=== PATIENT | male | born 1960 | race Caucasian/White ===

== ENCOUNTER 2025-08-12 20:35 | Emergency (ER) | payer MEDICARE, OTHER, SELFPAY ==
--- OUTSIDE RECORDS SUMMARY | 2022-11-29 05:00 | XMS_ITS | Continuity of Care Document ---
Author Organization [facility] Address [address] [place] [address] Phone Care Team Providers Care Business Objects Name Role Phone Zane Holder MD Unavailable Unavailable Procedures Procedure Date BLE ARTERIAL DUPLEX Advance Directives Directive Yes / No Effective Date File Name No Information Encounters Encounter Description Practice Location Reason(s) For Visit Diagnoses Date Provider [facility], [address], [place], [place], [id number], [place] tel:[phone] [facility] [place] No Information 2022 Glory Degroot. [address] [address], [address], [place], [place], [id number], [place]. tel:[phone] [facility], [address], [place], [place], [id number], [place] tel:[phone] [facility] [place] No Information 2022 Glory Degroot. [address] Ger[address]ona, [address], [place], [place], [id number], [place]. tel:[phone] [facility], [address], [place], [place], [id number], [place] tel:[phone] [facility] [place] No Information 2022 Glory Degroot. [address] Gerri Barahona, [address], [place], [place], [id number], [place]. tel:[phone] [facility], [address], [place], [place], [id number], [place] tel:[phone] [facility] [place] No Information 2022 Glory Degroot. [address] Ger[address]ahona, [facility] [address], [place], [place], [id number], [place]. tel:[phone] Family History Family Member Type Diagnosis Age At Onset No Information Payers Payer name Insurance type Covered alliance party ID Authorolivera clement(s) [facility] [id number] Social History Type Description Quantity Date Captured Comments Sex Male Smoking Status No Information Chief Complaint And Reason For Visit No Information History Of Present Illness Encounter Date Complaint History Of Prese nt Illness No Information Instructions Date Instruction Additional Infor mation No Information Assessments Type Assessment Date No Information
[2025-08-12 20:38] VITALS: BP 163/92; PULSE 98; RESP 22; TEMP 37.3; O2SAT 95; BMI 42.0
--- NOTE | 2025-08-12 20:44 | ECG_ITS ---
[facility]: 2025-08-12 Pat Name: Wai Marshall Department: Room: Gender: Male Special Technical Operations Officer: : 1960 Requested By: Milad Phillip Order Number: [id number] Magallon MD: Charlie Hernandez M.D. Measurements Intervals [place] Rate: 99 P: 55 CA: 211 QRS: 243 QRSD: 150 T: 40 QT: 387 QTc: 498 Interpretive Statements SINUS RHYTHM WITH FIRST DEGREE AV BLOCK RIGHT AXIS DEVIATION [QRS AXIS > 100] RIGHT BUNDLE BRANCH BLOCK [120+ ms QRS DURATION, UPRIGHT V1, 40+ ms S IN I/aVL/V4/V5/V6] No previous ECG available for comparison Electronically Signed On 08-13-2025 13:03:50 CDT by Charlie Hernandez M.D. [id number]
[2025-08-12 20:45] VITALS: BP 163/92; PULSE 98; RESP 22; TEMP 37.3; O2SAT 95
--- OUTSIDE RECORDS SUMMARY | 2025-08-12 20:45 | XMS_ITS | Referral Summary ---
Author Organization [facility] Address [address] [place] [address] Care Team Providers Care Architectural Design Professor Name Role Phone Unavailable Primary Care Provider Unavailabl e Social History Tobacco Use Types Packs/Day Years Used Date Smoking Tobacco: Never Assessed Sex and Gender Information Value Date Recorded Sex Assigned at Not on file Legal Sex Male 3:24 PM MDT Gender Identity Not on file Sexual Orientation Not on file Plan of Treatment Not on file
--- OUTSIDE RECORDS SUMMARY | 2025-08-12 20:45 | XMS_ITS | Clinical Summary ---
Author Organization [facility] Address [address] [place] [address] Care Team Providers Care Line Rider Name Role Phone Unavailable Primary Care Provider [...]
--- OUTSIDE RECORDS SUMMARY | 2025-08-12 20:45 | XMS_ITS | Clinical Summary ---
Author Organization [facility] Address [address] [place] [id number] Care Team Providers Care Curator Medical Museum Name Role Phone Karen Dia MD Primary Care Provide r Allergies Active Allergy Reactions Criticality Noted Date Comments Penicillins UNKNOWN (SEE COMMENTS) 03/24/2005 Medications aspirin 81 mg chewable tablet 2 tablets. Act george lisinopriL (PRINIVIL,ZESTRI L) 10 mg tablet 12/31/2023 Act george metoprolol succinate (TOPROL-XL) 25 mg 24 hr tablet 01/05/2024 Act george pravastatin (PRAVACHOL) 20 mg tablet Take 1 tablet by mouth daily. Active MULTIVITAMIN PO Acti ve docosahexaenoic acid/epa (FISH OIL PO) Active Social History Tobacco Use Types Packs/Day Years Used Date Smoking Tobacco: Every Day Cigarettes Smokeless Tobacco: Never Tobacco Cessation:Ready to Q uit: Not Asked; Counseling Given: Not Answered Sex and Gender Information Value Date Recorded Sex Assigned at Not on file Legal Sex Male 12:36 PM MDT Gender Identity Not on file Sexual Orientation Not on file Last Filed Vital Signs Vital Sign Reading Time Taken Comments Blood Pressure - - Pulse - - Temperature - - Respiratory Rate - - Oxygen Saturation - - Inhaled Oxygen Concentration - - Weight 134.3 kg (296 lb) 01/05/2025 8:50 AM [facility] Height 175.3 cm (5' 9 ) 01/05/2025 8:50 AM [facility] Body Mass Index 43.71 01/05/2025 8:50 AM [facility] Plan of Treatment Health Maintenance Due Date Last Done Comments Abdominal Aortic Aneurysm Screening 1960 CT Colonography 1960 Colonoscopy 1960 Colorectal Cancer Screening 1960 Flexible Sigmoidoscopy 1960 Stool DNA Test (Cologuard) 1960 Stool Occult Blood Test (FIT) 1960 Hepatitis C Antibody Screening 1976 [employer] ([employer]) 1976 RSV Vaccine Adult (1 - Risk 60-74 years 1-dose series) 2018 Influenza Vaccine (#1) 2025 , 08/26/2023, 09/13/2022, Additional history exists Lipids 04/21/2029 04/21/2024, 04/07/2023 Tdap/Td Vaccine (2 - Td or Tdap) 04/07/2033 04/07/20 23 Shingles Vaccine Completed 10/25/2019, 07/14/2019 Pneumonia Vaccine 50+ Completed 08/26/2023, 023 Insurance MEDICARE A AND B [employer] FOR LIFE - MEDICARE IS PRIMARY MEDICARE A AND B Care Teams Curator Medical Museum Relationship Specialty Start Date End Date Karen Dia MD [address] [place] [address] PCP - General Internal Medicine 04/25/23
[2025-08-12] MEDS: glucagon 1 mg/mL KIT 1 mL IVP (21:00)
--- NOTE | 2025-08-12 21:07 | ED_ITS ---
HPI - General Adult 2 General: Chief complaint: Airway/Esophagus Foreign Body Stated complaint: SOB Time Seen by Provider: 08/12/25 20:38 History of Present Illness: Patient is a 65-year-old male that was eating steak at [employer], choked on a steak, and came to the ED right after choking. He continues to be spitting while in the ER. He arrived by EMS. He feels a sensation of something in his neck. He has never had this before. He does not have a known stricture. Associated symptoms: Reports nausea and vomiting; Deny chest pain, dyspnea, headache(s), rash or palpitations Related Data Allergies Allergy/AdvReac Type Severity Reaction Status Date / Time amoxicillin Allergy Unknown Verified 08/12/25 20:56 Review of Systems 2 General: Reports: 10 or more systems reviewed and unremarkable except in HPI and below Const: Denies: fever(s) or chills Eyes: Denies: change in vision or blurry vision ENMT: Reports: odynophagia and mouth pain; Denies: throat pain Card: Denies: chest pain or palpitations Resp: Denies: dyspnea or productive cough GI: Reports: abdominal pain, nausea and vomiting : Denies: flank pain or difficulty urinating Musc: Denies: neck pain, back pain or extremity pain Skin/Breast: Denies: rash or pruritus Neuro: Denies: headache(s) or numbness in extremities Psych: Denies: anxiety or depression Endo: Denies: polyuria or polydipsia Noel/Lymph: Denies: easy bruising or easy bleeding All/Imm: Denies: urticaria or throat swelling Physical Exam 2 Const: COMMON NORMALS: no acute distress, average body habitus, patient oriented x3 and no limitations GENERAL APPEARANCE: cooperative O RIENTATION/CONSCIOUSNESS: Yes awake, Yes oriented to person, Yes oriented to place and Yes oriented to time HENMT: COMMON NORMALS: normocephalic, atraumatic and hearing grossly normal bilaterally HEAD & SCALP: normocephalic and atraumatic MOUTH: drooling and muffled voice; tongue not abnormal and no trismus Eye: COMMON NORMALS: Equal, round and reactive pupils present and EOMs intact bilaterally PUPIL: Yes Equal, round and reactive pupils present Neck/C-Spine: COMMON NORMALS: full ROM and no lymphadenopathy Lymph: LYMPHATIC: no lymphadenopathy noted Resp: COMMON NORMALS: normal respiratory effort and No retractions Cardio: COMMON NORMALS: regular rate and regular rhythm RATE: regular rate RHYTHM: regular rhythm GI: COMMON NORMALS: Normal to inspection, nondistended, normoactive bowel sounds present, Soft to palpation, non-tender, No hepatosplenomegaly present and no masses PALPATION: Yes Soft to palpation and Yes No hepatosplenomegaly present OTHER: Vomiting, and drooling. : COMMON NORMALS: Yes no CVA tenderness BLADDER/KIDNEY EXAM: Yes no CVA tenderness Back/Pelvis: COMMON NORMALS: no CVA tenderness Neuro: COMMON NORMALS: patient oriented x3 SENSORIUM/ORIENTATION: Yes oriented to person, Yes oriented to place and Yes oriented to time Course 2 Reevaluation(s): Reevaluation #1: Patient just passed his food, and is no longer spitting, and does not feel any food bolus in neck. Consultations: Consultation #1: Surgeon on-call has graciously accepted admission/to take patient to GI lab for food bolus. Consultation #2: Returned this call to the surgeon?he has graciously excepted not coming in to take care of the food bolus since patient has passed it. Vital Signs: Vital signs: Vital Signs Temperature 99.1 F 08/12/25 20:45 Pulse Rate 84 08/12/25 21:56 Respiratory Rate 18 08/12/25 21:56 Blood Pressure 145/90 08/12/25 21:56 Pulse Oximetry 94 08/12/25 21:56 Oxygen Delivery Me thod Room Air 08/12/25 20:45 MDM - General Adult Medical Decision Making Glucagon 1 mg was given, followed by nitroglycerin, twice, because the first 1 was spit out, and patient declined drinking the Coca[employer] to attempt to pass the food bolus. Discussed with surgeon on-call. He will call the GI lab. Lab Data 08/12/25 20:50 08/12/25 20:50 Laboratory Results WBC 11.97 10^3/uL (3.29-11.43) H 08/12/25 20:50 RBC 5.38 10^6/uL (3.85-5.65) 08/12/25 20:50 Hgb 16.00 g/dL (11.27-16.99) 08/12/25 20:50 Hct 48.1 % (37-53) 08/12/25 20:50 MCV 89.4 fl (82-101) 08/12/25 20:50 MCH 29.7 pg (27-33) 08/12/25 20:50 MCHC 33.3 g/dL (30-55) 08/12/25 20:50 RDW 14.0 % (12.1-15.1) 08/12/25 20:50 Plt Count 313 10^3/cmm (157-399) 08/12/25 20:50 MPV 11.1 fL (7.4-10.4) H 08/12/25 20:50 Neut % (Auto) 59.3 % 08/12/25 20:50 Lymph % (Auto) 28.1 % 08/12/25 20:50 Coleman % (Auto) 8.3 % 08/12/25 20:50 Eos % (Auto) 3.3 % 08/12/25 20:50 Baso % (Auto) 0.5 % 08/12/25 20:50 Neut # (Auto) 7.10 10^3/uL (1.8-7.7) 08/12/25 20:50 Lymph # (Auto) 3.4 10^3/uL (0.8-4.8) 08/12/25 20:50 Coleman # (Auto) 1.0 10^3/uL (0.2-0.9) H 08/12/25 20:50 Eos # (Auto) 0.4 10^3/uL (0.0-0.8) 08/12/25 20:50 Baso # (Auto) 0.1 10^3/uL (0.0-0.1) 08/12/25 20:50 Nucleated RBC % (auto) 0 % 08/12/25 20:50 Nucleated RBCs # 0.0 /100WBC 08/12/25 20:50 Sodium 135 mmol/L (136-145) L 08/12/25 20:50 Potassium 3.7 mmol/L (3.5-5.1) 08/12/25 20:50 Chloride 100 mmol/L (98-107) 08/12/25 20:50 Carbon Dioxide 22 mmol/L (22-29) 08/12/25 20:50 Anion Gap 16.7 (5-19) 08/12/25 20:50 BUN 17 mg/dL (8-23) 08/12/25 20:50 Creatinine 0.9 mg/dL (0.7-1.2) 08/12/25 20:50 GFR Calculation 84.2 mL/min (90-130) L 08/12/25 20:50 Glucose 184 mg/dL (65-115) H 08/12/25 20:50 Calculated Osmolality 286 mOsm/kg (285-295) 08/12/25 20:50 Calcium 9.0 mg/dL (8.5-10.5) 08/12/25 20:50 Total Bilirubin 0.2 mg/dL (0.15-1.2) 08/12/25 20:50 AST 17 U/L (0-40) 08/12/25 20:50 ALT 20 U/L (0-41) 08/12/25 20:50 Alkaline Phosphatase 98 U/L (40-130) 08/12/25 20:50 Total Protein 7.2 g/dL (6.6-8.7) 08/12/25 20:50 Albumin 4.2 g/dL (3.5-5.2) 08/12/25 20:50 Globulin 3.0 g/dL (1.3-4.6) 08/12/25 20:50 No radiology studies performed this visit Discharge Plan Discharge Patient Disposition: Home Clinical Impression: Esophageal obstruction due to food impaction Condition: Stable Discharge Orders: Discharge ED (Routine); Ordered 08/12/25 Ordered By: Myrna Handy Discharge Diet: Usual diet Patient Instructions: Food Impaction (ED), Patient Portal & Tomas Instructions Activity Restrictions/Additional Instructions: - Caution on eating big bites Return to ED if you have further issues Print Language: Turkish Coding Level of Care Code ED Geotechnical Department Manager for Rolf Rivera
[2025-08-12 21:31] LABS: Hematocrit 48.1 % (37-53); Hemoglobin 16.00 g/dL (11.27-16.99); Mean Corpuscular HGB Conc 33.3 g/dL (30-55); Mean Corpuscular Hemoglobin 29.7 pg (27-33); Mean Corpuscular Volume 89.4 fl (82-101); Nucleated Red Blood Cells % 0 %; Platelet Count 313 10^3/cmm (157-399); Red Blood Count 5.38 10^6/uL (3.85-5.65); White Blood Count 11.97 10^3/uL (3.29-11.43)
[2025-08-12 21:56] VITALS: BP 145/90; PULSE 84; RESP 18; O2SAT 94
[2025-08-12 22:01] LABS: Alanine Aminotransferase 20 U/L (0-41); Albumin Level 4.2 g/dL (3.5-5.2); Alkaline Phosphatase 98 U/L (40-130); Aspartate Amino Transferase 17 U/L (0-40); Blood Urea Nitrogen 17 mg/dL (8-23); Calcium 9.0 mg/dL (8.5-10.5); Carbon Dioxide 22 mmol/L (22-29); Chloride 100 mmol/L (98-107); Creatinine Clr Calc Pharmacy 106.0411; Globulin 3.0 g/dL (1.3-4.6); Glucose 184 mg/dL (65-115); Osmolality Calculated 286 mOsm/kg (285-295); Sodium 135 mmol/L (136-145); Total Protein 7.2 g/dL (6.6-8.7)
[2025-08-12 22:14] LABS: Anion Gap 16.7 (5-19); Potassium 3.7 mmol/L (3.5-5.1)
== END 2025-08-12 21:57 | disposition home or self-care (01) ==
PROVIDERS: Emergency Provider Physician Assistant
DX: T18.128A Food in esophagus causing other injury, initial encounter (principal); W44.F3XA Food entering into or through a natural orifice, initial encounter; K22.2 Esophageal obstruction
CPT/HCPCS: 36415; 80053; 85025; 93005; 96374; 99284; J1610; J7030; J9999